=== PATIENT | female | born 1940 | race American Indian/Alaskan Native ===

== ENCOUNTER 2022-05-22 06:48 | Outpatient (CLI) | payer MEDICARE ==
--- NOTE | 2022-05-22 10:58 | PET Report ---
PET CT Indication: Endometrial cancer restaging Technique: A total of 15.11 mCi F-18 FDG injected IV per protocol at approximately 7:10 AM with a sca n time of 8:[address] was utilized for dose attenuation and anatomic localization.. The scan occurred from the skull base to the upper thighs. Comparison: 12/19/2021 PET/CT. CTA chest abdomen pelvis 11/28/2020 Findings: When compared to multiple prior exams there has been progressive increased peritoneal and o mental nodularity with increasing ascites throughout the abdomen and pelvis. These areas of omental n odularity do not demonstrate significant increased hypermetabolic uptake, SUV ranging between 1.5 and 2.2 SUV max. In addition there is persistent mucosal thickening involving the distal gastric antrum and much of the stomach which has not significantly improved from the prior exam. There is evidence o f sigmoid diverticulosis. No acute findings within the lungs are identified. No abnormal radiotracer uptake is identified within the head/neck, chest, abdomen or pelvis. There is expected GI and excretion of radiotracer. No abnormal osseous uptake is appreciated however the o sseous structures appear quite heterogeneous especially the pelvis and thoracolumbar spine.. IMPRESSION: 1. Suspicious progression of omental/peritoneal nodularity/ascites when compared to multiple prior ex ams including 11/28/2020 and 12/19/2021. 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 There is no abnormal uptak e identified within the head/neck or the chest region to suggest distant metastatic disease in these regions. 2. Previously mentioned severe gastric mucosal thickening appears to have slightly worsened since 12/03 and underlying infiltrative pathology is suspected.. Signer Name: Sanchez Joe MD Signed: 05/22/2022 10:54 AM Workstation Name: [id number]
== END 2022-05-22 06:49 | disposition home or self-care (01) ==
LOC: PET 06:48
PROVIDERS: ATTEND Internal Medicine Hematology & Oncology
DX: K57.30 Diverticulosis of large intestine without perforation or abscess without bleeding (principal); C54.1 Malignant neoplasm of endometrium; J34.89 Other specified disorders of nose and nasal sinuses; M25.50 Pain in unspecified joint; T45.1X5A Adverse effect of antineoplastic and immunosuppressive drugs, initial encounter; Z41.8 Encounter for other procedures for purposes other than remedying health state; X58.XXXA Exposure to other specified factors, initial encounter
CPT/HCPCS: 78815; 82962; A9552